=== PATIENT | female | born 1990 | race Caucasian/White ===

== ENCOUNTER → 2020-10-26 | Outpatient (CLI) | payer OTHER ==
[~2020-10-26] MED LIST: AMOXICILLIN500 M3 PO; AMOXICILLIN500 MG PO; ATARAX25 MG PO; BACTRIM DS 8001 TA1 PO; BIRTH CONTROL1 EAC1 PO; CIPRO250 MG PO; CIPRODEX 0.3%-7.5 ML OT; CIPROFLOXACIN500 MG PO; CLARITIN10 MG PO; DICLOFENAC POTA50 MG PO; DIFLUCAN150 MG PO; FIORICET 325 MG1 TAB PO; GEODON40 MG PO; MACROBID100 M1 PO; MEDROL DOSEPAK4 MG PO; MOTRIN600 MG PO; MOTRIN800 MG PO; NAPROSYN500 MG PO; NKHM; PENICILLIN VK500 MG PO; PREDNICOT20 MG PO; PRENATAL1 TA1 PO; TRAMADOL HCL50 MG PO; VOLTAREN50 M1 PO; ZANTAC150 MG PO; ZITHROMAX Z PA250 MG PO; ZOFRAN ODT4 MG SL; Zofran4 MG PO; [UNRECOGNIZED DRUG - OTHER] V
[2020-10-26 13:56] LABS: CHLORIDE 112 mmol/L (98-107); POTASSIUM 4.1 mmol/L (3.5-5.1); SODIUM 143 mmol/L (136-145)
[2020-10-26 14:06] LABS: BUN 8 mg/dl (7-24)
== END | disposition home or self-care (01) ==
LOC: LAB 13:01
DX: E22.1 Hyperprolactinemia (principal)

== ENCOUNTER → 2020-11-19 | Outpatient (CLI) | payer OTHER | END | disposition home or self-care (01) | LOC: US 14:57 | PROVIDERS: ATTEND Physical Therapist | DX: R22.42 Localized swelling, mass and lump, left lower limb (principal) ==

== ENCOUNTER → 2021-01-17 | Outpatient (CLI) | payer OTHER | END | disposition home or self-care (01) | LOC: MRI 01-10 14:00 | PROVIDERS: ATTEND Internal Medicine Endocrinology, Diabetes & Metabolism | DX: E22.1 Hyperprolactinemia (principal); R93.0 Abnormal findings on diagnostic imaging of skull and head, not elsewhere classified ==

== ENCOUNTER → 2021-02-15 | Outpatient (CLI) | payer OTHER | END | disposition home or self-care (01) | LOC: COVID19 15:43 | PROVIDERS: ATTEND Internal Medicine | DX: Z11.52 Encounter for screening for COVID-19 (principal) ==

== ENCOUNTER → 2021-03-09 | Outpatient (CLI) | payer OTHER | END | disposition home or self-care (01) | LOC: MRI 15:00 | PROVIDERS: ATTEND Nurse Practitioner | DX: M21.612 Bunion of left foot (principal) ==

== ENCOUNTER 2021-07-31 18:58 | Emergency (ER) | payer OTHER | END 2021-07-31 20:31 | disposition home or self-care (01) | LOC: ED 18:58 | DX: M21.612 Bunion of left foot (principal); Z91.040 Latex allergy status ==

== ENCOUNTER → 2021-10-17 | Outpatient (CLI) | payer OTHER | END | disposition home or self-care (01) | LOC: LAB 15:23 | PROVIDERS: ATTEND Internal Medicine Endocrinology, Diabetes & Metabolism | DX: E22.1 Hyperprolactinemia (principal) ==

== ENCOUNTER → 2022-05-02 | Outpatient (CLI) | payer OTHER | END | disposition home or self-care (01) | LOC: LAB 16:05 | DX: D35.2 Benign neoplasm of pituitary gland (principal) ==

== ENCOUNTER → 2022-08-07 | Outpatient (CLI) | payer OTHER | END | disposition home or self-care (01) | LOC: LAB 15:09 | DX: D35.2 Benign neoplasm of pituitary gland (principal) ==

== ENCOUNTER → 2022-10-04 | Outpatient (CLI) | payer OTHER | LOC: ORTHO 07:46 | PROVIDERS: ATTEND Orthopaedic Surgery | DX: M25.512 Pain in left shoulder (principal) ==

== ENCOUNTER → 2022-10-27 | Outpatient (CLI) | payer OTHER | END | disposition home or self-care (01) | LOC: LAB 13:22 | DX: D35.2 Benign neoplasm of pituitary gland (principal) ==

== ENCOUNTER → 2023-11-12 | Outpatient (CLI) | payer OTHER | END | disposition home or self-care (01) | LOC: LAB 14:06 | DX: D35.2 Benign neoplasm of pituitary gland (principal) ==

== ENCOUNTER → 2024-11-14 | Outpatient (CLI) | payer OTHER ==
[2024-11-18 15:07] LABS: MONOMERIC PROLACTIN (ICMA) 31.0 ng/mL (.); PERCENT MACROPROLACTIN 39.0 % (.); PROLACTIN,SERUM (ICMA) 50.9 ng/mL (.)
== END ==
LOC: RAD 10-17 13:30 → LAB 13:21 → RAD 14:00
PROVIDERS: Internal Medicine Endocrinology, Diabetes & Metabolism; ATTEND Family Medicine
DX: M85.88 Other specified disorders of bone density and structure, other site (principal); Z30.42 Encounter for surveillance of injectable contraceptive

== ENCOUNTER → 2024-12-05 | Outpatient (CLI) | payer OTHER | LOC: ORTHO 12-01 14:16 | PROVIDERS: ATTEND Orthopaedic Surgery | DX: M25.539 Pain in unspecified wrist (principal) ==